=== PATIENT | male | born 1985 | race Two or more races ===

== ENCOUNTER 2020-07-31 02:07 | Emergency (ER) | payer SELFPAY ==
[~2020-07-31] VITALS: Ht 180.3 cm; Wt 90.9 kg
[2020-07-31 02:15] VITALS: Ht 180.3 cm; Wt 90.9 kg
[2020-07-31 03:01] LABS: HEMATOCRIT 43.4 % (42.0-54.0); HEMOGLOBIN 15.3 g/dL (13.5-17.5); MCH 31.9 pg (26.0-34.0); MCHC 35.3 g/dL (31.0-37.0); MCV 90.6 fL (80.0-100.0); MEAN PLATELET VOLUME 8.4 fL (7.4-10.4); PLATELET COUNT 260 10x3/uL (130-400); RBC 4.79 10x6/uL (4.20-6.10); RDW 12.3 % (11.5-14.5); WBC 9.8 10x3/uL (4.8-10.8)
[2020-07-31 03:17] LABS: APTT 34.6 SECONDS (22.8-39.4); INR 0.95 (0.85-1.17); PROTIME 12.6 SECONDS (11.6-15.0)
[2020-07-31 03:26] LABS: EOSINOPHILS 2 % (0-7); LYMPHOCYTES 44 % (15-50); NEUTROPHILS 54 % (40-80); PLATELET ESTIMATE NORMAL
[2020-07-31 03:27] LABS: CALC OSMOLALITY 277 mosm/kg (275-300); CALCIUM 8.6 mg/dL (8.5-10.1); CARBON DIOXIDE 28.5 mmol/L (21.0-32.0); CHLORIDE - SERUM 103 mmol/L (98-107); CREATININE - SERUM 0.9 mg/dL (0.6-1.3); GLUCOSE 98 mg/dL (74-106); POTASSIUM - SERUM 3.2 mmol/L (3.5-5.1); SODIUM 139 mmol/L (136-145); UREA NITROGEN 12 mg/dL (7-18); eGFR NON AFRICAN AMERICAN > 90 mL/min (90-120)
[2020-07-31 03:56] LABS: ALBUMIN 3.9 g/dL (3.4-5.0); ALKALINE PHOSPHATASE 64 U/L (30-120); ALT (SGPT) 22 U/L (10-68); CKMB 1.5 U/L (0.0-3.6); CREATINE KINASE 157 UL (21-232); MAGNESIUM - SERUM 2.2 mg/dL (1.8-2.4); PROTEIN - SERUM 7.6 g/dL (6.4-8.2); THYROID STIMULATING HORMONE 6.12 uIU/mL (0.36-3.74)
[2020-07-31 03:57] LABS: TROPONIN-I < 0.017 ng/mL (0.000-0.060)
[2020-07-31 04:10] LABS: BILIRUBIN NEGATIVE (NEGATIVE); KETONE NEGATIVE (NEGATIVE); NITRITE NEGATIVE (NEGATIVE); UROBILINOGEN NORMAL mg/dL (< 2)
[2020-07-31 04:16] LABS: UDS - AMPHET NEGATIVE QUAL (NEGATIVE); UDS - BARB NEGATIVE QUAL (NEGATIVE); UDS - BENZO NEGATIVE QUAL (NEGATIVE); UDS - COCAINE NEGATIVE QUAL (NEGATIVE); UDS - OPIATE NEGATIVE QUAL (NEGATIVE); UDS - PCP NEGATIVE QUAL (NEGATIVE); UDS - THC NEGATIVE QUAL (NEGATIVE)
[2020-07-31 06:52] LABS: CKMB 1.5 U/L (0.0-3.6); CREATINE KINASE 139 UL (21-232)
[2020-07-31 06:56] LABS: TROPONIN-I < 0.017 ng/mL (0.000-0.060)
[2020-07-31 07:02] VITALS: BP 105/81
== END 2020-07-31 07:02 | disposition home or self-care (01) ==
LOC: D.ER 02:07
PROVIDERS: Family Medicine
DX: R00.2 Palpitations (principal); E87.6 Hypokalemia; R55 Syncope and collapse; R42 Dizziness and giddiness